=== PATIENT | male | born 1960 | race Native Hawaiian/Other Pacific Islander ===

== ENCOUNTER 2016-06-10 20:46 | Inpatient (IN) | payer OTHER ==
[~2016-06-10] VITALS: Ht 165.1 cm; Wt 123.4 kg
[~2016-06-10 20:46] MED LIST: ALAVERT10 M2 PO; ASA LOW DOSE81 MG PO; DICL75TA4 PO; GABA400C2 PO; GLIM4TAB PO; LISITAB PO; MAG6464 MG PO; METF500T PO; NIACIN TIME RE500 MG PO; PRAVACHOL20 MG PO; VITAMIN D50000 UNT PO; ZANTAC300 MG PO
[2016-06-10 21:00] VITALS: BP 147/69; TEMP 99.4
[2016-06-10] MEDS ORDERED: ACET-689 PO (21:23)
[2016-06-10] MEDS ORDERED: [UNRECOGNIZED DRUG - OTHER] PO (21:24)
[2016-06-10 22:44] LABS: PLATELET COUNT 198 K/uL (142-355)
[2016-06-10 22:50] LABS: POTASSIUM 3.9 mmol/L (3.6-5.2); SODIUM 134 mmol/L (136-145)
[2016-06-11] VITALS (14 sets, daily range): BP systolic 103–136; BP diastolic 58–86; TEMP 97.9–98.8; Ht 165.1 cm; Wt 123.4 kg
--- NOTE | 2016-06-11 02:04 | NUR ---
06/11/16 0050 W/M ADMITTED TO ROOM 1107 DX BACTREMIA,FEVER ILLNESS.V/S AND WT OBTAINED FAMILY PRESENT AT BEDSIDE.PT ORIENTED TO ROOM CALL LIGHT WITHIN REACH. SALINE LOCK INTACT 20G TO LEFT AC.NO C/O VOICED AT THIS TIME.BLOOD SUGAR CHECKED 176.CC
[2016-06-11 08:54] LABS: PLATELET COUNT 172 K/uL (142-355)
[2016-06-11 09:16] LABS: POTASSIUM 3.6 mmol/L (3.6-5.2); SODIUM 135 mmol/L (136-145)
--- NOTE | 2016-06-11 10:33 | NUR ---
0930 PT STATED HE HAD A "TWINGE OF CHEST PAIN TO MID STERNUM AT 0500 THIS AM". 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 PT DENIES ANY CP PALPATATIONS OR SOB AT THIS TIME. CE AND EKG ORDEREDAT THIS TIME. MD INFORMED. 1000 DR MONTES DE OCA NOTIFIED OF EKG RESULTS THAT SHOWED A FIB WITH CONTROLLED RATE. PT REMAINS AYMPTOMATIC AND AM ASSESSMENT NORMAL 1035 PT TRANSFERRED TO ICU BED 3 PER MD ORDERES. PT AWAKE AND ALERT. TEL PRIOR TO TRANSFER SHOWED A FIB WITH RATE OF 68.
--- NOTE | 2016-06-11 11:12 | NUR ---
1040 REC'D PT FROM MED SURG DUE TO NEW ONSET OF A FIB. PT AWAKE AND ORENTEED X 5. NO ACUTE DISTRESS NOTED. PT ASSISTED TO BED 3. NO CO AT THIS TIME. PT CONNECTED TO MONITOR AND A FIB WITH RATE OF [address] MONTES DE OCA NOTIFIED AND AWAITING MD ARRIVAL.
[2016-06-11 11:23] LABS: PARTIAL THROMBOPLASTIN TIME 22.6 SECONDS (24.5-33.6)
--- NOTE | 2016-06-11 12:00 | NUR ---
PT ASSIST UP SITTING ON SIDE OF BED SERVED LUNCH TRAY ATE ABOUT 1/4, FAMILY MEMBERS HERE TO VISIT. DR MONTES DE OCA VISITED, CHECKED PT RECIEVED NEW ORDERS.
--- NOTE | 2016-06-11 12:30 | NUR ---
PT C/O CHEST PAIN HIGH AT BASE OF NECK. RATED 8, STARTED RIGHT AFTER HE ATE, REPORT TO DR MONTES DE OCA, RECIEVED ORDER, PT RECIEVED GI COCKTAIL PO ORDERED.
--- NOTE | 2016-06-11 12:48 | NUR ---
MED EFFECTIVE PAIN 1/2 WHAT IT WAS. FEELING BETTER. FAMILY AT BEDSIDE STARTED MEDS ORDERED.
--- NOTE | 2016-06-11 15:30 | NUR ---
RESTING QUIETLY, MEDS EFFECTIVE. MONITOR SHOWING A FIB HR 63. PT HAS BEEN NPO SINCE LUNCH FOR CT HEAD.
--- NOTE | 2016-06-11 15:46 | NUR ---
PT UNABLE TO SLEEP VERY LONG IN BED UP SITTING ON SIDE OF BED, DROWSY, STATES JUST NOT FEELING GOOD. ASSIST PT TO RECLINER HOB UP WITH LOWER EXT ELEVATED.
--- NOTE | 2016-06-11 16:00 | NUR ---
TALKING WITH PATIENT AND FAMILY, CHECKED LEGS RIGHT LEG CELLULITIUS NOTED, RED SWOLLEN WARM TO TOUCH. REPORT TO DR MONTES DE OCA. X RAY DEPT HERE, PT ASSIST TO W/C TO GO TO CT FOR CT HEAD.
--- NOTE | 2016-06-11 17:30 | NUR ---
PT SITTING ON EDGE OF BED UP TO BR WITH ASSISTANCE, BM AND VOID. BACK TO BED ASSIST NEEDED. ATE ALL DINNER TRAY FAIZA WELL NO COMPLAINTS. MONITOR SHOWING A FIB RATE 60. NO COMPLAINTS OF PAIN .
[2016-06-12] VITALS (12 sets, daily range): BP systolic 107–142; BP diastolic 56–90; TEMP 98.2–98.6
--- NOTE | 2016-06-12 01:00 | NUR ---
RESULTS FOR PTT RECEIVED AT 0054. PTT IS 64.0, INCREASED HEPARIN DRIP BY 0.5ML TO 14.5ML/HR PER ORDERS. WILL MONITOR CLOSELY.
[2016-06-12 06:05] LABS: PLATELET COUNT 145 K/uL (142-355)
[2016-06-12 06:27] LABS: POTASSIUM 3.3 mmol/L (3.6-5.2); SODIUM 136 mmol/L (136-145)
--- NOTE | 2016-06-12 08:34 | NUR ---
LAST NOTE IN EROR WRONG PT PT NOT ON HEPARIN DRIP. PT IS HEPLOCKED X2. PT STATED THAT HE HAD RESTED WELL LAST NIGHT. UP IN CHAIR DENIES PAIN DENIES SHORTNESS OF BREATH. MONITOR SHOWING A FIB HR 65. RESP EVEN CLEAR. CHECKED RIGHT LOWER LEG CELLULITIUS APPEARS IMPROVED LESS REDNESS SWELLING. PT STATES HIS LEG FEELS BETTER. POLA MONTES DE OCA NURSE VISITED.
--- NOTE | 2016-06-12 09:00 | NUR ---
PT RECIEVED AM MEDS ORDERED. STATES FEELING BETTER. PT HAS BSC, INC LIQUID STOOL DID NOT MAKE IT TO COMMODE. ASSIST WITH CLEAN UP, ASSIT TO SHOWER.
--- NOTE | 2016-06-12 11:38 | NUR ---
1140 DR MONTES DE OCA AT BS AT THIS TIME.
--- NOTE | 2016-06-12 12:01 | NUR ---
BLOOD SUGAR 239 RECIEVED 6 UNITS HUMALOG SQ. RIGHT ARM. CONTINUES UP IN CHAIR.
--- NOTE | 2016-06-12 17:05 | NUR ---
1445 TRANSFER ORDERS REC'D AT THIS TIME. PT TRANSFERRED TO [facility] ROOM 1129 VIA WC. FAMILY INFORMED AND AWARE. PT ALERT AND OREINTED X 4. NO CO OR PROBLEMS NOTED. PT REAMINS IN A FIB WITH CONTROLLED RATE OF 60"S
[2016-06-13] VITALS: BP 133/74; TEMP 97.7
[2016-06-13 04:00] VITALS: BP 127/77; TEMP 98.4
[2016-06-13 06:49] LABS: PLATELET COUNT 165 K/uL (142-355)
[2016-06-13 07:01] LABS: POTASSIUM 4.1 mmol/L (3.6-5.2); SODIUM 143 mmol/L (136-145)
[2016-06-13 20:00] VITALS: BP 150/77; TEMP 97.3
[2016-06-14 00:20] VITALS: BP 112/69; TEMP 98.7
[2016-06-14 04:00] VITALS: BP 153/78; TEMP 97.6
[2016-06-14 06:36] LABS: POTASSIUM 3.9 mmol/L (3.6-5.2); SODIUM 142 mmol/L (136-145)
[2016-06-14 06:42] LABS: PLATELET COUNT 160 K/uL (142-355)
[2016-06-14 08:00] VITALS: BP 170/80; TEMP 98.8
[2016-06-14 12:00] VITALS: BP 128/72; TEMP 97.9
--- NOTE | 2016-06-14 13:46 | NUR ---
PT AMBULATING OUTSIDE. INSTRUCTED PT COULDN'T MONITOR TELE OUTSIDE. PT VERBALIZED UNDERSTANDING. GAIT STEADY
[2016-06-14 16:00] VITALS: BP 108/66; TEMP 97.7
[2016-06-14 20:00] VITALS: BP 120/45
[2016-06-15] VITALS: BP 160/94; TEMP 98.2
[2016-06-15 04:00] VITALS: BP 146/67; TEMP 98.2
[2016-06-15 07:58] LABS: PLATELET COUNT 183 K/uL (142-355)
[2016-06-15 08:00] VITALS: BP 139/74; TEMP 97.8
[2016-06-15 08:56] LABS: POTASSIUM 3.9 mmol/L (3.6-5.2); SODIUM 142 mmol/L (136-145)
[2016-06-15 12:18] VITALS: BP 140/73; TEMP 97.6
[2016-06-15 16:00] VITALS: BP 133/68; TEMP 98.1
[2016-06-15 20:00] VITALS: BP 177/96; TEMP 97.8
[2016-06-16] VITALS: BP 117/67; TEMP 97.6
--- NOTE | 2016-06-16 03:42 | NUR ---
06/15/16 AT 2209TYLENOL #3 X 1 TAB PO X 1 DOSE NOW T. O. R&V DR. DEVLIN/PATRICIA HESTER, MYRA SPOKE WITH DR. DEVLIN IN ER DUE TO PT C/O HEADACHE.
[2016-06-16 04:00] VITALS: BP 139/85; TEMP 97.6
[2016-06-16 08:00] VITALS: BP 144/97; TEMP 97.9
[2016-06-16 10:16] LABS: PLATELET COUNT 185 K/uL (142-355)
[2016-06-16 11:12] LABS: POTASSIUM 3.9 mmol/L (3.6-5.2); SODIUM 140 mmol/L (136-145)
[2016-06-16 12:00] VITALS: BP 146/85; TEMP 97.8
[2016-06-16 16:00] VITALS: BP 133/97; TEMP 98.1
[2016-06-16 20:00] VITALS: BP 163/82; TEMP 97.7
[2016-06-17 00:21] VITALS: BP 138/74; TEMP 97.9
[2016-06-17 04:00] VITALS: BP 152/82; TEMP 97.7
[2016-06-17 05:39] LABS: PLATELET COUNT 206 K/uL (142-355)
[2016-06-17 06:04] LABS: POTASSIUM 3.5 mmol/L (3.6-5.2); SODIUM 140 mmol/L (136-145)
[2016-06-17 08:00] VITALS: BP 151/74; TEMP 97.5
[2016-06-17 12:00] VITALS: BP 131/67; TEMP 97.6
[2016-06-17 16:00] VITALS: BP 148/68; TEMP 98
[2016-06-17 20:00] VITALS: BP 167/91; TEMP 97.6
[2016-06-18] VITALS: BP 160/89; TEMP 98
[2016-06-18 04:00] VITALS: BP 128/68; TEMP 97.9
[2016-06-18 05:42] LABS: PLATELET COUNT 211 K/uL (142-355)
[2016-06-18 05:47] LABS: POTASSIUM 3.8 mmol/L (3.6-5.2); SODIUM 142 mmol/L (136-145)
[2016-06-18 08:00] VITALS: BP 139/66; TEMP 97.8
--- NOTE | 2016-06-18 11:10 | NUR ---
Pt executed discharge documents at this time. Pt refused to be taken out via wheelchair and requested to ambulate from the department. Request granted. Gait is steady. NAD noted with Pt at this time.
== END 2016-06-18 11:12 | disposition home or self-care (01) | DRG 872 ==
LOC: ED 20:46 → MED/SURG 23:54 → ICU 06-11 10:35 → MED/SURG 06-11 10:35 → ICU 06-12 17:48 → MED/SURG 06-12 17:48
PROVIDERS: Emergency Medicine; ADMIT Specialist
DX: A40.1 Sepsis due to streptococcus, group B (principal); I48.91 Unspecified atrial fibrillation; D72.828 Other elevated white blood cell count; E83.42 Hypomagnesemia; E11.65 Type 2 diabetes mellitus with hyperglycemia; D36.11 Benign neoplasm of peripheral nerves and autonomic nervous system of face, head, and neck; N32.89 Other specified disorders of bladder; I10 Essential (primary) hypertension
CPT/HCPCS: 36415; 80048; 80053; 81000; 82550; 82553; 82948; 82962; 83605; 83735; 84153; 84484; 85027; 85610; 85730; 86140; 86308; 86665; 87040; 87045; 87077; 87185; 87186; 87205; 87328; 87329; 87798; 87804; 87899; 93005; 96361; 96365; 96372; 96375; 99284; J0290; J0696; J1650; J1885; Q9963

== ENCOUNTER 2016-12-12 14:28 | Outpatient (CLI) | payer OTHER ==
[~2016-12-12 14:28] MED LIST changes: +ACET-689 PO; +[UNRECOGNIZED DRUG - OTHER] PO
[2016-12-12 14:49] LABS: PLATELET COUNT 189 K/uL (142-355)
[2016-12-12 14:58] LABS: POTASSIUM 4.3 mmol/L (3.6-5.2); SODIUM 136 mmol/L (136-145)
== END 2016-12-12 19:00 | disposition home or self-care (01) ==
LOC: LABW 14:28
PROVIDERS: Specialist
DX: R07.2 Precordial pain (principal); R93.1 Abnormal findings on diagnostic imaging of heart and coronary circulation
CPT/HCPCS: 36415; 80053; 85027

== ENCOUNTER 2016-12-19 14:37 | Outpatient (CLI) | payer OTHER ==
[2016-12-19 16:36] LABS: POTASSIUM 4.2 mmol/L (3.6-5.2); SODIUM 139 mmol/L (136-145)
== END 2016-12-19 15:40 | disposition home or self-care (01) ==
LOC: LABW 14:37
PROVIDERS: Nurse Practitioner Adult Health
DX: Z79.899 Other long term (current) drug therapy (principal); E11.9 Type 2 diabetes mellitus without complications; Z51.81 Encounter for therapeutic drug level monitoring
CPT/HCPCS: 36415; 80048

== ENCOUNTER 2017-06-23 10:18 | Outpatient (CLI) | payer OTHER | END 2017-06-23 22:25 | disposition home or self-care (01) | LOC: RAD 10:18 | DX: R07.81 Pleurodynia (principal) ==

== ENCOUNTER 2019-11-07 14:16 | Outpatient (CLI) | payer OTHER ==
[2019-11-07 15:28] LABS: PLATELET COUNT 191 K/uL (142-355)
[2019-11-07 17:17] LABS: POTASSIUM 4.9 mmol/L (3.6-5.2)
== END 2019-11-07 21:53 | disposition home or self-care (01) ==
LOC: LAB 14:16
PROVIDERS: Internal Medicine
DX: Z00.00 Encounter for general adult medical examination without abnormal findings (principal); E11.9 Type 2 diabetes mellitus without complications; E55.9 Vitamin D deficiency, unspecified; N40.0 Benign prostatic hyperplasia without lower urinary tract symptoms
CPT/HCPCS: 80053; 80061; 82306; 84153; 84439; 84443; 85027

== ENCOUNTER 2020-02-13 10:34 | Outpatient (CLI) | payer OTHER | END 2020-02-13 20:12 | disposition home or self-care (01) | LOC: MRI 10:34 | PROVIDERS: ATTEND Internal Medicine | DX: M54.41 Lumbago with sciatica, right side (principal); M54.10 Radiculopathy, site unspecified ==